=== PATIENT | male | born 1985 | race Caucasian/White ===

== ENCOUNTER 2017-03-03 04:37 | Emergency (ER) | payer MEDICAID ==
[~2017-03-03] VITALS: Ht 180.3 cm; Wt 77.1 kg
[2017-03-03 04:45] VITALS: BP 134/79
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
--- NOTE | 2017-03-03 04:56 | NUR ---
PT TAKEN TO BED 8
--- NOTE | 2017-03-03 05:16 | NUR ---
Dr. Lynch evaluating patient at bedside.
[2017-03-03] MEDS ORDERED: BACITRACIN OINT 500 UNITS/GM PKT TP ONE ×2 (05:20→05:26)
[2017-03-03 05:40] VITALS: BP 127/87
--- NOTE | 2017-03-03 05:40 | NUR ---
Patient discharged with v/s stable. Written and verbal after care instructions given and explained. Patient alert, oriented and verbalized understanding of instructions. Ambulatory with steady gait. All questions addressed prior to discharge. ID band removed. Patient advised to follow up with [facility] IN 1-2 DAYS OR RETURN BACK TO ER IF CONDITION WORSENS. Rx of TYLENOL, NAPROSYN AND KEFLEX. given. Patient educated on indication of medication including possible reaction and side effects. Opportunity to ask questions provided and answered.
== END 2017-03-03 05:40 | disposition home or self-care (01) ==
LOC: MED 04:37
DX: T22.132A Burn of first degree of left upper arm, initial encounter (principal); X08.8XXA Exposure to other specified smoke, fire and flames, initial encounter; Y93.89 Activity, other specified; Y92.89 Other specified places as the place of occurrence of the external cause; Y99.8 Other external cause status

== ENCOUNTER 2017-03-07 01:06 | Emergency (ER) | payer MEDICAID ==
[~2017-03-07] VITALS: Ht 180.3 cm; Wt 72.6 kg
[2017-03-07 01:10] VITALS: BP 122/62
--- NOTE | 2017-03-07 01:21 | NUR ---
PT TAKEN TO BED 8
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
--- NOTE | 2017-03-07 01:27 | NUR ---
Dr. Mckeon evaluating patient at bedside.
[2017-03-07] MEDS ORDERED: traMADol 50 MG TAB PO ONE (01:35)
[2017-03-07] MEDS ORDERED: BACITRACIN OINT 500 UNITS/GM PKT TP ONE ×2 (01:40→01:48)
[2017-03-07 02:06] VITALS: BP 119/59
== END 2017-03-07 02:06 | disposition home or self-care (01) ==
LOC: MED 01:06
DX: S51.802A Unspecified open wound of left forearm, initial encounter (principal); X58.XXXA Exposure to other specified factors, initial encounter; Y93.89 Activity, other specified; Y92.89 Other specified places as the place of occurrence of the external cause; Y99.8 Other external cause status